=== PATIENT | female | born 1945 | race Caucasian/White ===

== ENCOUNTER 2022-03-17 09:38 | Emergency (ER) | payer MEDICARE, OTHER ==
[~2022-03-17] VITALS: Ht 162.6 cm; Wt 53.1 kg
== END 2022-03-17 10:48 | disposition home or self-care (01) ==
LOC: ER 09:38
DX: S82.002A Unspecified fracture of left patella, initial encounter for closed fracture (principal); S60.211A Contusion of right wrist, initial encounter; J45.909 Unspecified asthma, uncomplicated; X58.XXXA Exposure to other specified factors, initial encounter
CPT/HCPCS: 73110